=== PATIENT | female | born 1975 | race African-American/Black ===

== ENCOUNTER 2021-02-16 22:20 | Emergency (ER) | payer OTHER, SELFPAY ==
--- NOTE | ~2021-02-16 | XR_ITS ---
EXAMINATION: XR chest 1V portable INDICATION: Cough TECHNIQUE: Portable AP chest at 2243 hours COMPARISON: None available FINDINGS: The lungs are free of acute opacities. There is no pleural effusion or pneumothorax. The ca rdiomediastinal silhouette is normal. IMPRESSION: 1. No acute cardiopulmonary abnormality. Reviewed, dictated and finalized at location A.
[2021-02-16 22:25] VITALS: BP 158/91; PULSE 126; RESP 20; O2SAT 98
--- NOTE | 2021-02-16 23:45 | PC.NURSE ---
Pt educated by ED MD and this RN that if she would like to have bloodwork done and urine testing, she would need to cooperate with staff and stop yelling/threatening to leave. pt then ran through nurses station in ED throwing objects, slamming Tracker board TV, threw box of gloves at this RN, and cursing loudly. Security present and Police department notified of pt destroying property and refusing to leave.
[2021-02-16 23:47] LABS: Basophils Absolute Auto 0.1 K/mm3 (0.0-0.1); Basophils Percent Auto 0.3 % (0.2-1.2); Eosinophils Percent Auto 0.2 % (0-4.4); Hematocrit 37.9 % (37.0-47.0); Immature Granulocyte Absolute 0.06 K/mm3 (0.00-0.031); Immature Granulocyte Percent A 0.4 % (0-0.5); Lymphocytes Absolute Auto 2.17 K/mm3 (0.9-3.2); Lymphocytes Percent Auto 14.5 % (18.3-44.2); Mean Corpuscular HGB Conc 31.7 g/dl (32-36); Mean Corpuscular Hemoglobin 27.5 pg (26-34); Mean Corpuscular Volume 86.7 fl (80-100); Mean Platelet Volume 9.5 fl (7.4-10.4); Monocytes Percent Auto 6.6 % (2.6-8.5); Neutrophils Absolute Auto 11.7 K/mm3 (1.3-6.7); Platelet Count Result 408 k/mm3 (150-375); Red Blood Count 4.37 M/mm3 (4.2-5.4); Red Cell Distribution Width 15.8 % (11.5-14.5)
[2021-02-16] MEDS: SODIUM CHLORIDE 0.9% IV 1,000 ML 999 ML IV CONT (23:53)
[2021-02-16] MEDS: LORazepam INJ (*CRX) 2 MG/ML VIAL 0.5 MG IV PUSH (23:53)
[2021-02-17 00:03] LABS: Alanine Aminotransferase 14 U/L (4-35); Albumin Level 4.1 g/dL (3.5-5.1); Alkaline Phosphatase 87 U/L (38-126); Anion Gap 10 mmol/L (8-16); Aspartate Amino Transferase 28 U/L (14-36); Bilirubin,Total 0.3 mg/dL (0.2-1.3); Blood Urea Nitrogen 14 mg/dL (7-17); Calcium 8.6 mg/dL (8.4-10.2); Carbon Dioxide 22 mmol/L (22-30); Chloride 104 mmol/L (98-107); Estimated CRCL calculation 112 ml/min; Estimated Glomerular Filt Rate > 60; Glucose 134 mg/dL (65-110); Lactic Acid Reflex 2.2 mmol/L (0.7-2.1); Magnesium 1.8 mg/dL (1.6-2.3); Potassium 3.1 mmol/L (3.4-5.0); Sodium 136 mmol/L (137-145)
--- NOTE | 2021-02-17 00:05 | ECG_ITS ---
Measurements Intervals [place] Rate: 130 P: 45 [place]: 96 QRS: 19 QRSD: 90 T: 15 QT: 305 QTc: 449 Interpretive Statements SINUS TACHYCARDIA WITH SHORT OH INTERVAL MINIMAL Q WAVES- HIGH LATERAL LEADS BORDERLINE ST-T WAVE ABNORMALITY- ANT/INF LEADS BASELINE ARTIFACT- I, II, V1-V2 ABNORMAL ECG Electronically Signed On 02-17-2021 7:49:00 CDT by Hubert English D.O.
[2021-02-17 00:12] LABS: Troponin I 0.015 ng/mL (0.000-0.034)
--- NOTE | 2021-02-17 00:16 | PC.NURSE ---
pt here c/o anxiety. reports taking zoloft since august 2020 for anxiety. called ems for increased anxiety this pm. a/o x 4. speech clear. good eye contact. cooperative and pleasant. denies SI/HI/AH/VH.
[2021-02-17 00:43] LABS: D Dimer 0.35 ug/mL (<0.48)
[2021-02-17] MEDS: SODIUM CHLORIDE 0.9% IV 1,000 ML 999 ML IV CONT (01:32)
[2021-02-17 01:37] VITALS: BP 154/74; PULSE 115; RESP 18; O2SAT 18
[2021-02-17 01:52] LABS: Add Urine Microscopic? YES; Appearance Urine Clear (Clear); Bacteria Urine Trace /hpf; Bilirubin Urine Negative (Negative); Blood Urine Negative (Negative); Color Urine Yellow (Yellow); Glucose Urine UA Negative (Negative); Ketones Urine Negative (Negative); Leukocyte Esterase Ur Trace LEU/UL (Negative); Mucus Urine Rare /lpf; Nitrate Urine Negative (Negative); Protein Urine Negative (Negative); RBC Urine 0-2 /hpf (0-2); Squamous Epithelial Cell Urine Many /hpf (Few); Urobilinogen Urine Negative mg/dL (<2.0)
--- NOTE | 2021-02-17 02:00 | ED.GENADULT ---
HPI - General Adult General Chief complaint: Anxiety Stated complaint: light headed Time Seen by Provider: 02/16/21 23:19 History of Present Illness HPI narrative: Patient is a 45-year-old female that presents the emergency department with chief complaint of possible panic attack patient states that she started having palpitations and felt as though her heart was racing the patient states that she has had a little bit of tightness in her chest with this reports that the symptoms came on suddenly reports no prior history of dysrhythmia no prior history of clots or pulmonary embolism patient states that is not improved by anything nor is it worsened by Related Data Allergies Allergy/AdvReac Type Severity Reaction Status Date / Time No Known Allergies Allergy Unverified 07/05/16 10:40 Review of Systems Review of Systems: A 10 system review of systems was completed on the patient and is negative except for what is stated in the HPI. Nursing and ancillary documentation was reviewed. [facility] Family History Family History Mother Family history of diabetes mellitus in first degree relative Other Diabetes mellitus Family history of coronary artery disease Social History Social History Smoking status: Current every day smoker Alcohol intake: current Exam Narrative: GENERAL: Well-appearing, well-nourished, and in no acute distress. HEAD: Normocephalic, atraumatic. EYES: PERRLA and EOMI. ENT: Nares clear, no rhinorrhea or epistaxis. Mucous membranes moist. NECK: Supple. CHEST: Clear to auscultation. No respiratory distress. HEART: Regular rate and rhythm. No murmur heard. Normal peripheral pulses. ABDOMEN: Soft, nontender, nondistended, normal active bowel sounds. EXTREMITIES: Normal range of motion. No edema. SKIN: Warm, dry, no rash. NEURO: No focal deficits. Alert and oriented x3. PSYCH: Normal mood and affect. Course Vital Signs Vital signs: Vital Signs Pulse Rate 126 H 02/16/21 22:25 Respiratory Rate 20 02/16/21 22:25 Blood Pressure 158/91 H 02/16/21 22:25 Pulse Oximetry 98 02/16/21 22:25 Pulse Rate 115 H 02/17/21 01:37 Respiratory Rate 18 02/17/21 01:37 Blood Pressure 154/74 H 02/17/21 01:37 Pulse Oximetry 18 L 02/17/21 01:37 Medical Decision Making Vital Signs Vital Signs: Vital Signs Pulse Rate 126 H 02/16/21 22:25 Respiratory Rate 20 02/16/21 22:25 Blood Pressure 158/91 H 02/16/21 22:25 Pulse Oximetry 98 02/16/21 22:25 Pulse Rate 115 H 02/17/21 01:37 Respiratory Rate 18 02/17/21 01:37 Blood Pressure 154/74 H 02/17/21 01:37 Pulse Oximetry 18 L 02/17/21 01:37 Lab Data Result diagrams: 02/16/21 23:40 02/16/21 23:40 Labs: Lab Results 02/16/21 02/16/21 02/16/21 Range/Units 23:40 23:40 23:40 WBC 15.0 H (4.5-10.0) K/mm3 RBC 4.37 (4.2-5.4) M/mm3 Hgb 12.0 (12.0-15.0) g/dL Hct 37.9 (37.0-47.0) % MCV 86.7 (80-100) fl MCH 27.5 (26-34) pg MCHC 31.7 L (32-36) g/dl RDW 15.8 H (11.5-14.5) % Plt Count 408 H (150-375) k/mm3 MPV 9.5 (7.4-10.4) fl Immature Gran % (Auto) 0.4 (0-0.5) % Neut % (Auto) 78.0 H (45.5-73.1) % Lymph % (Auto) 14.5 L (18.3-44.2) % [place] % (Auto) 6.6 (2.6-8.5) % Eos % (Auto) 0.2 (0-4.4) % Baso % (Auto) 0.3 (0.2-1.2) % Lymph # (Auto) 2.17 (0.9-3.2) K/mm3 [place] # (Auto) 1.0 H (0.1-0.6) K/mm3 Eos # (Auto) 0.0 (0-0.3) K/mm3 Baso # (Auto) 0.1 (0.0-0.1) K/mm3 Abs Immat Gran (auto) 0.06 H (0.00-0.031) K/mm3 Absolute Neuts (auto) 11.7 H (1.3-6.7) K/mm3 Absolute Nucleated RBC 0.0 (0.0-0.012) K/mm3 Nucleated RBC % 0.0 (0.0-0.2) % D-Dimer (<0.48) ug/mL Sodium 136 L (137-145) mmol/L Potassium 3.1 L (3.4-5.0) mmol/L Chloride 104 (98-107) mmol/L
[2021-02-17 02:43] LABS: Reflex Lactic Acid Yes or No Add Lactic
== END 2021-02-17 03:07 | disposition home or self-care (01) ==
PROVIDERS: Emergency Provider Emergency Medicine; PCP Family Medicine
DX: R00.2 Palpitations (principal); E86.0 Dehydration; R00.0 Tachycardia, unspecified; R94.31 Abnormal electrocardiogram [ECG] [EKG]; F17.200 Nicotine dependence, unspecified, uncomplicated
CPT/HCPCS: 36415; 71045; 80053; 81001; 81025; 83605; 83735; 84484; 85025; 85380; 93005; 96361; 96374; 99284; J2060; J7030

== ENCOUNTER 2021-08-18 15:18 | Emergency (ER) | payer OTHER, SELFPAY ==
--- NOTE | ~2021-08-18 | XR_ITS ---
XR abdomen/kub 1V 08/18/2021 16:03 INDICATION: Flank pain TECHNIQUE: KUB COMPARISON: No prior studies for comparison. FINDINGS: Bowel gas pattern is normal. There is no evidence of free air, mass, organomegaly, ascites or obstruction. No abnormal calculi are seen. The bones appear intact. There are pelvic phlebolith s. IMPRESSION: 1: No acute abdominal abnormality identified. Reviewed, dictated and finalized at location B.
[2021-08-18 15:28] VITALS: BP 156/79; PULSE 104; RESP 16; TEMP 36.8; O2SAT 100
--- NOTE | 2021-08-18 15:43 | ED.GENADULT ---
HPI - General Adult General Chief complaint: Urogenital-Female Stated complaint: Urinary pain Time Seen by Provider: 08/18/21 15:42 Source: patient and RN notes reviewed Mode of arrival: ambulatory Limitations: no limitations History of Present Illness HPI narrative: 46-year-old female presents concern for right flank pain. She reports pain started Wednesday. She reports 2 episodes of vomiting yesterday. She denies any dysuria, frequency, urgency, however she reports she has had a feeling of not emptying her bladder fully. She reports the pain worsens in nature with certain positions. She denies any sudden sharp stabbing pain. She denies history of kidney stones. Reports she is occasionally had urinary tract infections in the past. She denies any back injury. She denies loss of bowel or bladder function, abdominal pain, weakness in any extremity, fever. Patient does not currently have a primary care provider. MD complaint: Flank pain Related Data Home Medications Medication Instructions Recorded Confirmed norethindrone (contraceptive) 0.35 mg PO DAILY 08/18/21 08/18/21 sertraline 100 mg PO DAILY 08/18/21 08/18/21 Allergies Allergy/AdvReac Type Severity Reaction Status Date / Time No Known Allergies Allergy Unverified 08/18/21 15:31 Review of Systems Review of Systems: CONSTITUTIONAL: Denies malaise, chills, sweats, or fever. CARDIOVASCULAR: Denies chest pain, palpitations, or edema. RESPIRATORY: Denies cough or dyspnea. GASTROINTESTINAL: Denies abdominal pain, diarrhea, bloody, or mucous stools. Reports 2 episode of vomiting GENITOURINARY: Denies dysuria, frequency, urgency, or hematuria. Reports feeling of not being able to empty her bladder SKIN: Denies rash or itching. MUSCULOSKELETAL: Reports right flank pain with a burning sensation. Denies myalgia. All systems reviewed & are unremarkable except as noted in HPI and below PMFSH Family History Family History Mother Family history of diabetes mellitus in first degree relative Other Diabetes mellitus Family history of coronary artery disease Social History Social History Smoking status: Current every day smoker Alcohol intake: current Comments At time of signature, agree with nursing past medical, surgical, social and family history. There is no relevant family history pertinent to the presenting complaint Exam Narrative: GENERAL: Well-appearing, well-nourished, and in no acute distress. HEAD: Normocephalic. EYES: PERRLA, conjunctivae clear. NECK: Supple. No lymphadenopathy CHEST: Clear to auscultation. No respiratory distress. HEART: Regular rate and rhythm. ABDOMEN: Soft, nontender upon palpation, nondistended, normal active bowel sounds, no palpable or pulsatile masses, no guarding. No CVA tenderness SKIN: Warm, dry, no rash. NEURO: Alert and oriented x3. PSYCH: Normal mood and affect Course Course Emergency Course: Discussed x-ray findings with patient, UA findings with patient. Discussed follow-up with urology if culture is negative or antibiotic does not improve symptoms. Patient is aware of, understands and agrees to treatment plan. Anticipatory guidance given. Patient agrees to follow-up as directed and is aware of reasons to seek care at the emergency department. Portions of this record may have been created with voice recognition software Level of Care: Express Care Visit Vital Signs Vital signs: Vital Signs Temperature 98.2 F 08/18/21 15:28 Pulse Rate 104 H 08/18/21 15:28 Respiratory Rate 16 08/18/21 15:28 Blood Pressure 156/79 H 08/18/21 15:28 Pulse Oximetry 100 08/18/21 15:28 Temperature 98.2 F 08/18/21 15:28 Pulse Rate 104 H 08/18/21 15:28 Respiratory Rate 16 08/18/21 15:28 Blood Pressure 156/79 H 08/18/21 15:28 Pulse Oximetry 100 08/18/21 15:28 Reviewed. Med
== END 2021-08-18 16:24 | disposition home or self-care (01) ==
PROVIDERS: Emergency Provider Nurse Practitioner
DX: R10.9 Unspecified abdominal pain (principal); F17.200 Nicotine dependence, unspecified, uncomplicated
CPT/HCPCS: 74018; 81003; 87086; 87088; 99213; G0463

== ENCOUNTER 2022-07-16 23:16 | Emergency (ER) | payer OTHER, SELFPAY ==
[2022-07-16 23:20] VITALS: BP 169/87; PULSE 88; RESP 20; TEMP 37; O2SAT 99
--- NOTE | 2022-07-17 00:41 | PC.NURSE ---
patient states she is feeling better and left from triage
== END 2022-07-17 02:48 | disposition left against medical advice (07) ==
DX: R55 Syncope and collapse (principal)
CPT/HCPCS: 99199

== ENCOUNTER 2022-07-18 14:36 | Emergency (ER) | payer OTHER, SELFPAY ==
--- NOTE | 2022-07-18 14:40 | ED.DIZZY ---
HPI - Dizziness General Chief Complaint: Dizziness Stated Complaint: SWOLLEN ANKLES/LIGHT HEADED/OFF BALANCE Time Seen by Provider: 07/18/22 14:41 Source: patient and RN notes reviewed History of Present Illness HPI Narrative: Patient is a 47-year-old female who presents to Urgent Care with her mother with complaints of lightheadedness. Patient states that she was feeling a little off balance Wednesday and . Patient called the paramedics on ? everything checked out?. Patient states that she had the same issue approximately 3 months ago and she was seen in the emergency room for dehydration. Patient states that she did not time to [place] emergency room and tried to hydrate at home. Patient states she is fully aware that she does not drink enough and does sip coffee all day long. Patient denies of dizziness currently. Denies any chest pain or shortness of breath. States that she feels her symptoms are more related to sinus symptoms. Denies any recent fever illness. States that she did have some bilateral lower ankle swelling last week which resolved after taking herself off the collagen supplement. Patient is unaware of a diagnosis of hypertension however she has noticed that her last few medical visits has showed elevated blood pressure. Patient currently does not have a primary care doctor. Patient has not done anything [id number] for her symptoms. Patient ambulates without difficulty. No other acute complaints. No acute distress noted. Patient aware of the plan of care. Some parts of this dictation were generated by voice recognition software and may contain typographical and/or grammatical inaccuracies. Related Data Home Medications Medication Instructions Recorded Confirmed norethindrone (contraceptive) 0.35 0.35 mg PO DAILY 08/18/21 07/18/22 mg tablet Allergies Allergy/AdvReac Type Severity Reaction Status Date / Time No Known Allergies Allergy Verified 07/18/22 14:45 Review of Systems Review of Systems: CONSTITUTIONAL: Denies fever, chills, or sweats. EYES: Denies visual changes, redness, or discharge. ENT: Reports bilateral otalgia and sinus pressure CARDIOVASCULAR: Denies chest pain, palpitations, or edema. RESPIRATORY: Denies cough or dyspnea. GASTROINTESTINAL: Denies abdominal pain, nausea, vomiting, or diarrhea. GENITOURINARY: Denies dysuria or hematuria. SKIN: Denies rash or itching. MUSCULOSKELETAL: Denies back pain, joint pain, or myalgia. NEUROLOGIC: Denies headache, numbness, or weakness. Reports of intermittent dizziness All other systems reviewed are negative, except as documented in HPI. [facility] Family History Family History Mother Family history of diabetes mellitus in first degree relative Other Diabetes mellitus Family history of coronary artery disease Social History Social History Smoking status: Current every day smoker Alcohol intake: current Comments At the time of my signature, I reviewed and agree with the nursing past medical, surgical, social, and family history. There is no relevant family history pertinent to the patient complaint. Exam Narrative: GENERAL: This is a well-nourished, well-developed patient, in no apparent distress. HEAD: normocephalic, atraumatic. Left upper facial swelling extending to the left upper eyelid without erythema or tenderness EYES: PERRL. Sclera clear/white. Vision is grossly intact. EARS: External ears normal, auditory canals clear and without drainage, TMs normal without perforation. Hearing grossly intact. NOSE: External nose normal with no obvious nasal discharge, nares without redness, no rhinorrhea. THROAT: Mucous membranes moist, posterior pharynx clear. Moderate postnasal drainage DENTAL: Avulsed upper left dentition with mild erythema and edema to the left upper quadrant gingiva NECK:
[2022-07-18 14:50] VITALS: BP 172/93; PULSE 115; RESP 22; TEMP 36.7; O2SAT 100
--- NOTE | 2022-07-18 15:05 | ECG_ITS ---
Measurements Intervals [place] Rate: 94 P: 67 DC: 133 QRS: 19 QRSD: 102 T: 9 QT: 346 QTc: 435 Interpretive Statements SINUS RHYTHM POSSIBLE LEFT ATRIAL ENLARGEMENT [-0.1mV P WAVE IN V1/V2] COMPARED TO ECG 02/17/2021 00:05:19 THE RATE IS SLOWER Electronically Signed On 07-19-2022 8:25:10 MARGARINE CHURN OPERATOR by Jeni Jones M.D.
[2022-07-18 15:06] LABS: Glucose Point of Care 116 mg/dl (65-105)
== END 2022-07-18 15:26 | disposition home or self-care (01) ==
PROVIDERS: Emergency Provider Nurse Practitioner Family
DX: K04.7 Periapical abscess without sinus (principal); J32.9 Chronic sinusitis, unspecified; I10 Essential (primary) hypertension; F17.200 Nicotine dependence, unspecified, uncomplicated
CPT/HCPCS: 81003; 82948; 93005; 99213; G0463